=== PATIENT | female | born 1985 | race Hispanic/Latino ===

== ENCOUNTER 2019-02-22 22:12 | Observation (INO) | payer OTHER ==
[2019-02-22 22:24] VITALS: TEMP 97.9
--- NOTE | 2019-02-22 22:43 | ED PDOC ---
Arrival/HPI <Ihsan Gaffney - Last Filed: 02/23/19 01:36> - General Historian: Patient - History of Present Illness Narrative History of Present Illness (Text): 02/22/19 22:40 33 yo female w/ PMH of ovarian cysts and ovarian torsion comes to ED for evaluation of abdominal pain. Patient states the abdominal pain started today after she left work. Patient states she thought it was gas and attempted to use the bathroom. Afterwards, patient went to shower but he pain kept intensifying. Patient states she had similar pains about 6 years ago but it was much more intense causing her to pass out. Patient received a surgical procedure to remove the cysts and do have the ovarian torsion corrected. Patient has not followed up with an CLASSIFICATIONS OFFICER CC/CM specialist in years. The pain is localized to the lower abdomen, radiates to the back and legs, described as sharp in nature. Last menstrual cycle was last Friday. Denies fevers, chills, chest pain, sob, n/v, constipation or diarrhea, and dysuria. Time/Duration: 1-3 hours Symptom Onset: Sudden Symptom Course: Worsening Quality: Stabbing Severity Level: 7 Activities at Onset: Rest Context: Sitting <Miguelito Hawley - Last Filed: 02/23/19 01:56> - General Chief Complaint: Female Genitourinary Time Seen by Provider: 02/22/19 22:29 Past Medical History - Provider Review Nursing Documentation Reviewed: Yes - Infectious Disease Hx of Infectious Diseases: None - Past Medical History Past Medical History: No Previous - Psychiatric Hx Substance Use: No - Surgical History Other/Comment: ovarian cyst removal - Anesthesia Hx Anesthesia: Yes Hx Anesthesia Reactions: No Hx Malignant Hyperthermia: No <Miguelito Hawley - Last Filed: 02/23/19 01:56> Family/Social History - Physician Review Nursing Documentation Reviewed: Yes Family/Social History: Neoplasm/Cancer (aunt- ovarian cancer), Other Smoking Status: Current Some Days Smoker Hx Alcohol Use: Yes Frequency of alcohol use: Socially Hx Substance Use: No <Miguelito Hawley - Last Filed: 02/23/19 01:56> Allergies/Home Meds <Ihsan Gaffney - Last Filed: 02/23/19 01:36> <Miguelito Hawley - Last Filed: 02/23/19 01:56> Allergies/Adverse Reactions: Allergies No Known Allergies Allergy (Verified 02/22/19 22:24) Home Medications: Home Meds Medication Instructions Recorded Confirmed No Known Home Med 02/22/19 02/22/19 Review of Systems - Review of Systems Constitutional: Normal. absent: Fatigue, Weight Change, Fevers Eyes: Normal. absent: Vision Changes, Photophobia ENT: Normal Respiratory: Normal. absent: SOB, Cough, Sputum Cardiovascular: Normal. absent: Chest Pain, Palpitations, Edema Gastrointestinal: Abdominal Pain. absent: Constipation, Diarrhea, Nausea, Vomiting Genitourinary Female: Normal. absent: Dysuria, Frequency, Hematuria Musculoskeletal: Back Pain. absent: Arthralgias, Neck Pain, Joint Swelling Skin: Normal. absent: Rash, Pruritis, Skin Lesions Neurological: Normal. absent: Headache, Dizziness, Focal Weakness Endocrine: Normal. absent: Diaphoresis, Polyuria, Polydipsia Psychiatric: Normal. absent: Anxiety, Depression <Miguelito Hawley - Last Filed: 02/23/19 01:56> Physical Exam Vital Signs Temp Pulse Resp BP Pulse Ox 02/22/19 22:22 97.9 F 70 14 119/80 100 <Ihsan Gaffney - Last Filed: 02/23/19 01:36> Vital Signs Temp Pulse Resp BP Pulse Ox 02/22/19 22:22 97.9 F 70 14 119/80 100 Temperature: Afebrile Blood Pressure: Normal Pulse: Regular Respiratory Rate: Normal Appearance: Positive for: Well-Appearing, Non-Toxic, Comfortable Pain Distress: None Mental Status: Positive for: Alert and Oriented X 3 - Systems Exam Head: Present: Atraumatic, Normocephalic Pupils: Present: PERRL Extroacular Muscles: Present: EOMI Conjunctiva: Present: Normal Mouth: Present: Moist Mucous Membranes Respiratory/Chest: Present: Clear to Auscultation, Good Air Exchange. No: Respiratory Distress, Accessory Muscle Use Cardiovascular: Present: Regular Rate and Rhythm, Normal S1, S2. No: Murmurs Abdomen: Present: Tenderness, Normal Bowel Sounds. No: Distention, Peritoneal Signs, Rebound, Guarding Back: Present: Normal Inspection. No: Midline Tenderness, Paraspinal Tenderness Upper Extremity: Present: Normal Inspection. No: Cyanosis, Edema Lower Extremity: Present: Normal Inspection. No: Edema, CALF TENDERNESS Neurological: Present: GCS=15, CN II-XII Intact, Speech Normal Skin: Present: Warm, Dry, Normal Color. No: Rashes Psychiatric: Present: Alert, Oriented x 3, Normal Insight, Normal Concentration <ChandanRyanaser - Last Filed: 02/23/19 01:56> Medical Decision Making - RAD Interpretation Narrative RAD Interpretations (Text): 02/23/19 01:37 CT SCAN OF THE ABDOMEN AND PELVIS WITH CONTRAST. CLINICAL HISTORY: Abdominal pain radiating to the lower back. TECHNIQUE: Multiple axial and coronal CT images were obtained through the abdomen and pelvis after administration of intravenous contrast material. COMPARISON: Ultrasound on 02/22/2019. COMMENTS: 1.4 cm right ovarian mature teratoma/dermoid. Enlarged left ovary. Multicystic complex mass of the left ovary measuring 11.3x10.5 cm containing multifocal fat foci in its posterior aspect, probably mature teratoma/dermoid. Mild amount of fecal residue in the large bowel, probably mild constipation. Mild changes of pelvic congestion syndrome. Mild amount of free pelvic fluid. Distended bladder. Mild secondary fullness of the collecting systems. Uncomplicated colonic diverticulosis. Mild amount of fecal residue in the large bowels. The liver is of uniform attenuation without mass or defect. There is no intra or extrahepatic biliary ductal dilatation. The spleen is normal. The gallbladder is within normal limits. The pancreas is of normal contour and attenuation characteristics. There is no evidence of adrenal mass. Both kidneys demonstrate prompt and equal nephrograms. The kidneys are normal in size, shape and configuration. There is no evidence of renal or ureteral mass. No renal or ureteral calculi are identified. There is no hydroureter or hydronephrosis. No evidence for appendicitis. There is no bowel wall thickening. No evidence for small or large bowel obstruction. There is no evidence of abdominal lymphadenopathy. There is no evidence of intrinsic or extrinsic bladder mass. Images of the lung bases show no evidence of pleural or parenchymal mass. There are no pleural effusions. The bony structures are free of lytic or blastic lesions. IMPRESSION: 1.4 cm right ovarian mature teratoma/dermoid. Enlarged left ovary. Multicystic complex mass of the left ovary measuring 11.3x10.5 cm containing multifocal fat foci in its posterior aspect, probably mature teratoma/dermoid. Mild amount of fecal residue in the large bowel, probably mild constipation. Mild changes of pelvic congestion syndrome. Mild amount of free pelvic fluid. Distended bladder. Mild secondary fullness of the collecting systems. 02/23/19 01:37 US Pelvis, Complete Transvaginal and Transabdominal COMPARISON: None provided. CLINICAL HISTORY: Pelvis pain TECHNIQUE: Transvaginal and transabdominal pelvic ultrasound (complete) with image documentation. FINDINGS: ENDOMETRIUM: Endometrial stripe measures 1.1 cm. UTERUS/CERVIX: Uterus measures 9.0 x 4.3 x 6.0 cm. Cervix measures 3.3 cm. RIGHT OVARY: See below. LEFT OVARY: Not seen. FREE FLUID: No free fluid in the cul de sac. MISCELLANEOUS: There is a very large right adnexal complex mass which appears to demonstrate internal blood flow in portions of the lesion. This is concerning for possible neoplasm. This lesion is measuring at least 19.3 x 14.3 x 16.9 cm cm. It is difficult to fully visualize this lesion on pelvic ultrasound. Consider correlation with CT or MRI. IMPRESSION: 1. Uterus measures 9.0 x 4.3 x 6.0 cm. 2. Endometrial stripe measures 1.1 cm. 3. Cervix measures 3.3 cm. 4. No free fluid in the cul de sac. 5. There is a very large right adnexal complex mass which appears to demonstrate internal blood flow in portions of the lesion. This is concerning for possible neoplasm. It is difficult to fully visualize this lesion on pelvic ultrasound. Consider correlation with CT or MRI. Radiology Orders: 02/22/19 22:39 ABD & PELVIS IV CONTRAST ONLY [CT] Stat 02/22/19 22:57 TRANSVAGINAL [US] Stat Juke Box Mechanic: Radiologist - Medication Orders Current Medication Orders: Discontinued Medications Tramadol HCl (Ultram) 50 mg PO STAT STA Stop: 02/22/19 22:40 Last Admin: 02/22/19 22:49 Dose: 50 mg [facility] Pain Assessment Document 02/22/19 22:49 KV (Rec: 02/22/19 22:56 KV [id number]) Pain Reassessment Is this a pain reassessment? No Sleep Is patient sleeping during reassessment? No Presence of Pain Presence of Pain Yes Pain Scale Used Protocol: PSCALES Pain Scale Used Numeric Location Left, Right or Bilateral Left Upper or Lower Lower Pain Location Body Site Abdomen Description Description Constant Intensity of Pain at present 7 <Ihsan Gaffney - Last Filed: 02/23/19 01:36> ED Course and Treatment: 02/22/19 22:46 Impression 33 yo female w/ PMH of ovarian cysts and ovarian torsion comes to ED for evaluation of abdominal pain. Plan -CBC -CMP -Ultram -CT abd/pelvis IV contrast -Pelvis U/S Prior Visits No prior visits Progress Notes will give ultram for pain, will re-assess patient's pain, pending imaging and blood work 02/22/19 22:56 Imaging came which showed a large left cyst (mature teratoma vs neoplasm) and a right cyst static balancer hospitalist, Dr. Guthrie, was contacted who stated that he would will reciate a surgical consult and CLASSIFICATIONS OFFICER CC/CM consult Patient will be admitted to medical surgical floor Re-evaluation Time: 01:54 Reassessment Condition: Re-examined, Unchanged - Lab Interpretations Lab Results: 02/22/19 22:55 02/22/19 22:55 Lab Results 02/22/19 22:55: Urine HCG, Qual Negative 02/22/19 22:55: Sodium 140, Potassium 3.6, Chloride 102, Carbon Dioxide 22, Anion Gap 19, BUN 18, Creatinine 0.8, Est GFR ( Amer) > 60, Est GFR (Non- Af Amer) > 60, Random Glucose 94, Calcium 9.5, Total Bilirubin 0.8, AST 20, ALT 23, Alkaline Phosphatase 66, Total Protein 8.0, Albumin 4.7, Globulin 3.3, Albumin/Globulin Ratio 1.4 02/22/19 22:55: WBC 6.4, RBC 4.51, Hgb 11.4 L, Hct 35.1 L, MCV 77.8 L, MCH 25.3, MCHC 32.5, RDW 17.1 H, Plt Count 280, MPV 9.8, Neut % (Auto) 64.5, Lymph % (Auto) 28.1, [place] % (Auto) 6.6 H, Eos % (Auto) 0.6 L, Baso % (Auto) 0.2, Lymph # (Auto) 1.8, [place] # (Auto) 0.4, Eos # (Auto) 0.0, Baso # (Auto) 0.01, Absolute Neuts (auto) 4.13 I have reviewed the lab results: Yes Interpretation: Abnormal lab values - RAD Interpretation Juke Box Mechanic: Radiologist <Miguelito Hawley Last Filed: 02/23/19 01:56> - PA / ELECTROLYTIC DE SCALER / Resident Statement MD/DO has reviewed & agrees with the documentation as recorded. MD/DO has examined the patient and agrees with the treatment plan. - Scribe Statement The provider has reviewed the documentation as recorded by the Scribe Patient Seen With Resident: In agreement with resident note which contains more details about the patient. Patient was seen and evaluated with resident. Came up with plan and treatment together. <Ihsan Gaffney - Last Filed: 02/23/19 01:36> Disposition/Present on Arrival <Ihsan Gaffney - Last Filed: 02/23/19 01:36> - Present on Arrival Any Indicators Present on Arrival: No History of DVT/PE: No History of Uncontrolled Diabetes: No Urinary Catheter: No History of Decub. Ulcer: No History Surgical Site Infection Following: None - Disposition Have Diagnosis and Disposition been Completed?: Yes Disposition Time: 01:56 Patient Plan: Admission <Miguelito Hawley - Last Filed: 02/23/19 01:56> - Disposition Diagnosis: Teratoma, Ovarian cyst, complex Condition: FAIR Forms: [employer] (Polish)
[2019-02-22 23:08] LABS: BASO # 0.01 K/mm3 (0.0-2.0); BASO % 0.2 % (0.0-3.0); EOS % 0.6 % (1.5-5.0); HEMOGLOBIN 11.4 g/dL (12.0-16.0); LYMPH # 1.8 (1.2-3.4); LYMPH % 28.1 % (22.0-35.0); MEAN CELL VOLUME 77.8 fl (80.0-105.0); MEAN CORPUSCULAR HEMOGLOBIN 25.3 pg (25.0-35.0); MEAN CORPUSCULAR HGB CONC 32.5 g/dl (31.0-37.0); MEAN PLATELET VOLUME 9.8 fl (7.0-11.0); MONO # 0.4 (0.1-0.6); MONO % 6.6 % (1.0-6.0); RBC 4.51 10^6/uL (3.5-6.1); RED CELL DISTRIBUTION WIDTH 17.1 % (11.5-14.5); WHITE BLOOD COUNT 6.4 10^3/uL (4.5-11.0)
[2019-02-22 23:15] LABS: ALB/GLOB RATIO 1.4 (1.1-1.8); ALBUMIN 4.7 g/dL (3.0-4.8); ALT/SGPT 23 U/L (7-56); AST/SGOT 20 U/L (14-36); BLOOD UREA NITROGEN 18 mg/dL (7-21); CALCIUM 9.5 mg/dL (8.4-10.5); GFR NON-AFRICAN AMERICAN > 60
[2019-02-22] MEDS ORDERED: Iohexol 350 MG/100 ML VIAL ONE (23:40)
[2019-02-23] MEDS ORDERED: Oxycodone/Acetaminophen 5/325 mg Tab PO PRN ×3 (02:17→11:10)
[2019-02-23 03:40] VITALS: BMI 24.9
--- NOTE | 2019-02-23 06:23 | CP.PCM.CON ---
History of Present Illness - History of Present Illness History of Present Illness: SURGERY CONSULT NOTE FOR DR. LANDEROS Reason: Ovarian mass 33F presents with abdominal pain that began last night. Patient states she has a history of this pain. The pain was in the left adnexa region and was sharp in nature. She states the pain was associated with nausea but no vomiting, She is able to tolerate diet, and having normal bowel function. She states her menstrual period is over and the pain does not necessarily correlate with the period. She has had bilateral ovarian cystectomies in the past 10 years ago. PMH: Ovarian cysts PSH: Bilateral Ovarian cystectomy Social: social tobacco and alcohol use, hx of one and one miscarriage, no living children Allergies: NKDA Past Patient History - Infectious Disease Hx of Infectious Diseases: None - Past Social History Smoking Status: Light Smoker < 10 Cigarettes Daily - CARDIAC Hx Cardiac Disorders: No - PULMONARY Hx Respiratory Disorders: No - NEUROLOGICAL Hx Neurological Disorder: No - HEENT Hx HEENT Problems: No - RENAL Hx Chronic Kidney Disease: No - ENDOCRINE/METABOLIC Hx Endocrine Disorders: No - HEMATOLOGICAL/ONCOLOGICAL Hx Blood Disorders: No - INTEGUMENTARY Hx Dermatological Problems: No - MUSCULOSKELETAL/RHEUMATOLOGICAL Hx Musculoskeletal Disorders: No Hx Falls: No - GASTROINTESTINAL Hx Gastrointestinal Disorders: No - GENITOURINARY/GYNECOLOGICAL Hx Genitourinary Disorders: Yes (Hx ovarian cyst/ ovarian torsion) - PSYCHIATRIC Hx Psychophysiologic Disorder: No Hx Substance Use: No - SURGICAL HISTORY Hx Surgeries: No Other/Comment: ovarian cyst removal - ANESTHESIA Hx Anesthesia: Yes Hx Anesthesia Reactions: No Hx Malignant Hyperthermia: No Meds Allergies/Adverse Reactions: Allergies Allergy/AdvReac Type Severity Reaction Status Date / Time No Known Allergies Allergy Verified 02/22/19 22:24 - Medications Medications: Current Medications Oxycodone/Acetaminophen (Percocet 5/325 Mg Tab) 1 tab PO Q4H PRN PRN Reason: Pain, moderate (4-7) Stop: 02/23/19 10:00 Physical Exam - Constitutional Appears: Non-toxic, No Acute Distress - Head Exam Head Exam: ATRAUMATIC - Eye Exam Eye Exam: EOMI, PERRL - ENT Exam ENT Exam: Mucous Membranes Moist - Respiratory Exam Respiratory Exam: Clear to Auscultation Bilateral, NORMAL BREATHING PATTERN - Cardiovascular Exam Cardiovascular Exam: REGULAR RHYTHM, +S1, +S2 - GI/Abdominal Exam GI & Abdominal Exam: Mass (suprapubic), Soft, Tenderness (Right lower abd). absent: Distended, Firm, Guarding, Rebound, Rigid - Extremities Exam Extremities exam: Negative for: pedal edema, tenderness - Neurological Exam Neurological exam: Alert, Oriented x3 - Skin Skin Exam: Dry, Intact, Normal Color, Warm Results - Vital Signs Recent Vital Signs: Last Vital Signs Temp 97.9 F 02/22/19 22:22 Pulse 66 02/23/19 03:12 Resp 20 02/23/19 03:12 BP 105/67 02/23/19 02:00 Pulse Ox 100 02/23/19 02:00 - Labs Result Diagrams: 02/22/19 22:55 02/22/19 22:55 Labs: Laboratory Results - last 24 hr 02/22/19 02/22/19 02/22/19 22:55 22:55 22:55 WBC 6.4 RBC 4.51 Hgb 11.4 L Hct 35.1 L MCV 77.8 L MCH 25.3 MCHC 32.5 RDW 17.1 H Plt Count 280 MPV 9.8 Neut % (Auto) 64.5 Lymph % (Auto) 28.1 [place] % (Auto) 6.6 H Eos % (Auto) 0.6 L Baso % (Auto) 0.2 Lymph # (Auto) 1.8 [place] # (Auto) 0.4 Eos # (Auto) 0.0 Baso # (Auto) 0.01 Absolute Neuts (auto) 4.13 Sodium 140 Potassium 3.6 Chloride 102 Carbon Dioxide 22 Anion Gap 19 BUN 18 Creatinine 0.8 Est GFR ( Amer) > 60 Est GFR (Non-Af Amer) > 60 Random Glucose 94 Calcium 9.5 Total Bilirubin 0.8 AST 20 ALT 23 Alkaline Phosphatase 66 Total Protein 8.0 Albumin 4.7 Globulin 3.3 Albumin/Globulin Ratio 1.4 Urine HCG, Qual Negative Assessment & Plan - Assessment and Plan (Free Text) Assessment: 33F with abdominal pain 2/[address]: Multiple ovarian masses with largest measuring 11cm, possible teratoma, dermoid US: large right ovarian mass 9cm Plan: - pain control - continue diet - further work up required, CA125 Further recs discuss with Dr. Pedro Khan, PGY3
[2019-02-23 08:18] VITALS: BP 95/57; PULSE 72; RESP 18; O2SAT 98
--- NOTE | 2019-02-23 09:59 | CT ---
Date of service: 02/23/2019 PROCEDURE: CT Abdomen and Pelvis with and without intravenous contrast HISTORY: abdominal pain radiating to lower back COMPARISON: None. TECHNIQUE: Axial images of the abdomen were obtained in the pre contrast, portal venous and delayed phases of enhancement. Coronal and sagittal reformats were generated. Contrast dose: Radiation dose: Total exam DLP = 650.13 mGy-cm. This CT exam was performed using one or more of the following dose reduction techniques: Automated exposure control, adjustment of the mA and/or kV according to patient size, and/or use of iterative reconstruction technique. FINDINGS: LOWER THORAX: Unremarkable. LIVER: Unremarkable. No gross lesion or ductal dilatation. GALLBLADDER AND BILE DUCTS: Unremarkable. PANCREAS: Unremarkable. No gross lesion or ductal dilatation. SPLEEN: Unremarkable. ADRENALS: Unremarkable. No mass. KIDNEYS AND URETERS: Delayed right nephrogram. No hydronephrosis. No solid mass. VASCULATURE: Unremarkable. No aortic aneurysm. No aortic atherosclerotic calcification or mural plaque present. BOWEL: Unremarkable. No obstruction. No gross mural thickening. APPENDIX: Normal appendix. PERITONEUM: Unremarkable. No free fluid. No free air. LYMPH NODES: Unremarkable. No enlarged lymph nodes. BLADDER: Unremarkable. REPRODUCTIVE: Complex cystic mass in the left ovary measuring roughly 10.7 by 11.0 centimeters. There are minimal foci of fat present raise the possibility of a dermoid, but, overall the appearance is suspicious with multiple loculations and septations. Malignancy is not excluded. Tissue diagnosis is recommended. Additional right ovarian mass measuring roughly 3.5 x 3.1 cm with internal fat most suggestive of a dermoid. BONES: No acute fracture. OTHER FINDINGS: None. IMPRESSION: Complex cystic mass in the left ovary measuring roughly 10.7 by 11.0 centimeters. There are minimal foci of fat present raise the possibility of a dermoid, but, overall the appearance is suspicious with multiple loculations and septations. Malignancy is not excluded. Tissue diagnosis is recommended. Given its size, resection should be considered. Additional right ovarian mass measuring roughly 3.5 x 3.1 cm with internal fat most suggestive of a dermoid. Associated delayed nephrogram on the right suggesting an element of right renal obstruction.
[2019-02-23] MEDS ORDERED: Enoxaparin 40 mg Syringe SC SCH (10:00)
--- NOTE | 2019-02-23 11:32 | US ---
Date of service: 02/22/2019 PROCEDURE: HISTORY: lower abdominal pain COMPARISON: TECHNIQUE: FINDINGS: The uterus measures 9.0 x 4.2 x 6.0 centimeters and is retroverted. The endometrium measures 11 millimeters. The left ovary is not identified. There is a large right pelvic complex cystic mass measuring 19 x 14 x 17 centimeters with numerous locules. There is internal debris. Malignancy is not excluded. No significant ascites. IMPRESSION: As above.
--- NOTE | 2019-02-23 17:09 | US ---
HISTORY: Leg pain and swelling. Evaluate for DVT PHYSICIAN(S): Jason Dennison MD. TECHNIQUE: Duplex sonography and color-flow Doppler with graded compression were used to evaluate the deep venous systems of both lower extremities. FINDINGS: The visualized deep venous systems of both lower extremities are sonographically normal and compressible. Normal wave forms and augmentation are seen. There is no sonographic evidence for deep venous thrombosis in the visualized segments of both lower extremities. IMPRESSION: No sonographic evidence for deep venous thrombosis in the visualized segments of both lower extremities.
[2019-02-24] MEDS ORDERED: Pantoprazole 40 mg EC Tab PO SCH (07:30)
--- NOTE | 2019-02-24 23:08 | HP ---
DATE OF EXAM: 02/23/2019 HISTORY AND PHYSICAL AND DISCHARGE SUMMARY The patient was admitted with lower abdominal pain. The patient was admitted with the main complaint of abdominal pain. HISTORY OF PRESENT ILLNESS: This is a 33-year-old female with history of ovarian cysts more than 10 years ago. She had surgery in the past, both ovaries in [facility] here. She had been okay since then. She has been complaining of intermittent abdominal pain since the last few days or a week, pain seems getting worse and seems getting continuous for the last few days, came to the ER for evaluation. She does not have any nausea, vomiting, diarrhea. No fever. No other complaint. The patient was seen in the ER, had a CT of abdomen and pelvis, which shows bilateral ovarian cysts in the range of 10 cm plus or minus. The patient was admitted for evaluation by web site developer and to be evaluated for possible surgery. PAST MEDICAL HISTORY: As above. She is single. She has no children. She does have bilateral ovarian cysts in the past, which was treated and resected 10 years ago. FAMILY HISTORY: Noncontributory. SOCIAL HISTORY: She does drink occasionally, but she smokes less than 10 cigarettes a day. No history of drug use disorder. ALLERGIES: ACCORDING HER, SHE HAS NO KNOWN ALLERGY. REVIEW OF SYSTEMS: Other than the present illness, she is fine. Negative review of systems. PHYSICAL EXAMINATION VITAL SIGNS: Temperature 97, heart rate 72, blood pressure 103/67, respirations 16, sat 100% on room air. HEAD AND NECK: Normal. No JVD, no thyromegaly. CHEST: Clear bilateral. CARDIAC: First sound and second sound normal. No murmur, rub or gallop. ABDOMEN: Soft. There is tenderness in the lower abdomen, more on the right side. EXTREMITIES: No edema. NEUROLOGIC: Normal. LABORATORY DATA: White count 6.4, hemoglobin 11.4, hematocrit 35.1, platelets 280. Chemistry; sodium 140, potassium is 3.6, chloride 102, bicarb 22, BUN 18, creatinine 0.8. Liver function test is normal. Urinalysis; urine hCG is negative. The patient had a CT of abdomen and pelvis, which shows the following; a complex cystic mass 10.7 x 11 cm in the left ovary, also multiple loculations and septations, and an additional ovarian mass measuring 3.5 x 3.1 cm with internal fat suggesting dermoid, malignancy is not excluded. Venous Doppler report of lower extremity was done to rule out any DVT and there was no evidence of DVT. IMPRESSION: 1. This is a 33-year-old female with history of ovarian cystic mass in the past, maybe 10 years ago, resected and came back with significant pain and she started having symptoms of pain and a sinking kind of mass, a cystic mass to rule out malignancy. The patient will be admitted. Surgical Oncology, Dr. Mario Vasquez seen the patient and recommends laparoscopic removal according to him. 2. Gynecology consult, Dr. Mcintyre seen the patient, she recommends to take her to [facility], however, the patient refused either one and she decided to be discharged to be followed and she will be followed as an outpatient or she will be going to another hospital where she had the first surgery. I did recommend to definitely follow up, there is no emergency in this care. We will discharge the patient to be followed up with Gynecology for surgery and surgical evaluation. DISCHARGE DIAGNOSES: 1. Pelvic pain. 2. Ovarian mass, rule out malignancy. Tobias Guthrie MD
== END 2019-02-23 17:36 | disposition home or self-care (01) ==
LOC: ED 22:12 → INTOOBSV 02-23 01:57 → ERH 02-23 01:57 → 3RNO 02-23 03:04
PROVIDERS: ADMIT Internal Medicine; ATTEND Internal Medicine
DX: N83.9 Noninflammatory disorder of ovary, fallopian tube and broad ligament, unspecified (principal); R10.9 Unspecified abdominal pain; F17.210 Nicotine dependence, cigarettes, uncomplicated
CPT/HCPCS: 74177; 76830; 80053; 81025; 84703; 85025; 93970; 99285; G0378; Q9967